=== PATIENT | female | born 1990 | race American Indian/Alaskan Native ===

== ENCOUNTER 2018-10-22 08:13 | Inpatient (IN) | payer MEDICAID ==
[2018-10-22] MEDS ORDERED: LACTATED RINGERS 1,000 ML ONE (08:46)
[2018-10-22] MEDS ORDERED: XYLOCAINE 2% INFILTRATI ONE ×2 (10:22→11:16)
[2018-10-22] MEDS ORDERED: BRETHINE SUB-Q PRN (10:22)
[2018-10-22] MEDS ORDERED: ZOFRAN IV PRN (10:22)
[2018-10-22] MEDS ORDERED: BRETHINE IVP PRN (10:22)
[2018-10-22] MEDS ORDERED: PITOCin/NS 30 UNIT/500ML 30 UNITS/500 ML BAG IV SCH ×2 (10:29→12:00)
[2018-10-22] MEDS ORDERED: LACTATED RINGERS 1,000 ML IV SCH ×2 (11:00→12:00)
[2018-10-22] MEDS ORDERED: PITOCin/NS 20 UNIT/1000ML DRIP 20 UNITS/1,000 ML BAG IV SCH (11:00)
[2018-10-22 11:11] LABS: Hematocrit 34.9 % (30.3-42.9); Hemoglobin 11.7 gm/dl (10.1-14.3); Mean Corpuscular HGB Conc 33 % (30-34); Mean Corpuscular Volume 95 fl (79-97); Platelet Count 248 K/mm3 (140-440); Red Blood Count 3.66 M/mm3 (3.65-5.03); Red Cell Distribution Width 15.9 % (13.2-15.2)
[2018-10-22] MEDS: SUBLIMAZE IV PRN ×2 (11:51→14:23)
--- NOTE | 2018-10-22 11:52 | History and Physical Report ---
History of Present Illness Date of examination: 10/22/18 (presents for IOL) Date of admission: 10/22/18 08:13 History of present illness: EDC Confirmation: 10/13/2018 Gestational Age: 26 5/7 weeks Past History : 5 Term Births: 2 Premature Births: 1 Living Children: 3 Para: 3 Mult. Births: 0 Prev : 0 Prev. attempt? 0 Aborta: 1 Elect. Ab: 0 Spont. Ab: 1 Ectopics: 0 # 1 Delivery date: 2012 Weeks Gestation: 40 Delivery type: Anesthesia type: epidural Delivery location: [facility] weight: 6lb Comments: pt reports all babies were 6lbs # 2 Delivery date: 2015 Weeks Gestation: 6 Delivery type: SAB Delivery location: [facility] Comments: pyleostenosis # 3 Delivery date: 2017 Weeks Gestation: 40 Delivery type: Anesthesia type: epidural Delivery location: [facility] weight: 6lb # 4 Delivery date: 2018 Weeks Gestation: 34 labor: yes Delivery type: Anesthesia type: epidural Delivery location: [facility] weight: 6lb Past Medical History: Reviewed history and no changes required: Negative Past Medical History Past Surgical History: Reviewed history and no changes required: negative Past Medical History Anesthesia Complications: negative Anemia: negative Autoimmune Disorder: negative Bleeding Disorder: negative Blood Transfusions: negative Breast Disease: negative Diabetes: negative Heart Disease: negative Hypertension: negative Hepatitis/Liver Disease: negative Kidney Disease/UTI: negative Neurologic/Epilepsy/Migraines: negative Phlebitis/Varicosities: negative Psychiatric: negative Pulmonary Disease/Asthma: negative Thyroid Disease: negative Hospitalizations: negative Surgery (Non-presser hand): negative Abnormal PAP: negative LADONNA Exposure: negative Infertility: negative Uterine Anomaly: negative Uterine Surgery (not C/S): negative Other Gynecologic Problems: negative Social Hx: Patient is single Smoking History: Patient has never smoked. Infection History Hx of STD: none Personal hx. of genital herpes: no Partner hx. of genital herpes: no Varicella/Chicken Pox Status: Previous Disease Genetic History Congenital Heart Defect: Mom: no Dad: no Monse Disease: Mom: no Dad: no Thalassemia Mom: no Dad: no Neural Tube Defect Mom: no Dad: no Down's Syndrome Mom: no Dad: no Juan-Sachs Mom: no Dad: no Sickle Cell Disease/Trait Mom: no Dad: no Hemophilia Mom: no Dad: no Muscular Dystrophy Mom: no Dad: no Cystic Fibrosis Mom: no Dad: no Atkinson Chorea Mom: no Dad: no Mental Retardation Mom: no Dad: no Fragile X Mom: no Dad: no Other Genetic/Chromosomal Disorder Mom: no Dad: no Child w/other defect Mom: no Dad: no Enviromental Exposures Xray Exposure: no Medication, drug, or alcohol use since LMP: no Chemical/Other Exposure: no Exposure to Cat Liter: no Hx of Parvovirus (Fifth Disease): no Occupational Exposure to Children: none Active Medications (reviewed today): None Current Allergies (reviewed today): IBUPROFEN (IBUPROFEN TABS) (Critical) Past History - Obstetrical History Expected Date of Delivery: 10/13/18 Actual Gestation: 41 Week(s) 2 Day(s) : 5 Para: 2 Hx # Term Pregnancies: 2 Number of Pregnancies: 0 Spontaneous Abortions: 0 Induced : 0 Number of Living Children: 2 Medications and Allergies Allergies Allergy/AdvReac Type Severity Reaction Status Date / Time ibuprofen Allergy Swelling Verified 10/22/18 10:21 Active Meds: Active Medications Ephedrine Sulfate (Ephedrine Sulfate) 10 mg IV Q2M PRN PRN Reason: Hypotension Fentanyl (Sublimaze) 100 mcg IV Q2H PRN PRN Reason: Labor Pain Lactated Ringer's (Lactated Ringers) 1,000 mls @ 125 mls/hr IV DIRECT TAM Oxytocin/Sodium Chloride (Pitocin/Ns 20 Unit/1000ml Drip) 20 units in 1,000 mls @ 125 mls/hr IV DIRECT TAM Lactated Ringer's (Lactated Ringers) 1,000 mls @ 125 mls/hr IV DIRECT ATM Oxytocin/Sodium Chloride (Pitocin/Ns 30 Unit/500ml) 30 units in 500 mls @ 4 mls/hr IV Q30MIN TAM; Protocol Mineral Oil (Mineral Oil) 30 ml PO QHS PRN PRN Reason: Constipation Ondansetron HCl (Zofran) 4 mg IV Q8H PRN PRN Reason: Nausea And Vomiting Terbutaline Sulfate (Brethine) 0.25 mg SUB-Q ONCE PRN PRN Reason: Hyperstimulation/Hypertonicity Terbutaline Sulfate (Brethine) 0.25 mg IVP ONCE PRN PRN Reason: Hyperstimulation/Hypertonicity - Vital Signs Vital signs: Vital Signs Pulse BP 86 111/73 10/22/18 08:37 10/22/18 08:37 Temp Pulse Resp BP Pulse Ox 98.2 F 86 16 111/73 10/22/18 09:00 10/22/18 08:37 10/22/18 09:00 10/22/18 08:37 - Physical Exam Breasts: Positive: normal Cardiovascular: Regular rate, Normal S1, Normal S2 Lungs: Positive: Normal air movement Abdomen: Positive: normal appearance, soft, normal bowel sounds. Negative: distention, tenderness Genitourinary (Female): Positive: normal external genitalia Vulva: both: normal Vagina: Positive: normal moisture. Negative: discharge Cervix: Negative: lesion, discharge Uterus: Positive: normal size, normal contour Adnexa: both: normal Anus/Rectum: Positive: normal perianal skin, heme negative. Negative: rectal mass, hemorrhoids Extremities: Positive: normal Deep Tendon Reflex Grade: Normal +2 - Obstetrical FHR: category 1 Uterine Contraction Monitor Mode: External Cervical Dilatation: 6 (per RN on admission) Cervical Effacement Percentage: 70 station: -2 Uterine Contraction Pattern: Irregular Uterine Tone Measurement Phase: Resting Uterine Contraction Intensity: Mild Results Result Diagrams: 10/22/18 09:00 Abnormal lab results 10/22/18 Range/Units 09:00 RDW 15.9 H (13.2-15.2) % All other labs normal. GBS Negative HBsAg Screen Negative Negative *1 RPR Non Reactive Non Reactive *2 Rubella Antibodies, IgG 13.50 index Immune >0.99 *3 Non-immune <0.90 Equivocal 0.90 - 0.99 Immune >0.99 ABO Grouping O *4 Rh Factor Positive *5 Please note: Prior records for this patient's ABO / Rh type are not available for additional verification. Antibody Screen Negative Negative *6 WBC 7.6 x10E3/uL 3.4-10.8 *7 RBC [L] 3.59 x10E6/uL 3.77-5.28 *8 Hemoglobin [L] 10.5 g/dL 11.1-15.9 *9 Hematocrit [L] 32.1 % 34.0-46.6 *10 MCV 89 fL 79-97 *11 MCH 29.2 pg 26.6-33.0 *12 MCHC 32.7 g/dL 31.5-35.7 *13 RDW [H] 21.6 % 12.3-15.4 *14 Platelets 224 x10E3/uL 150-379 *15 Neutrophils 73 % Not Estab. *16 Lymphs 20 % Not Estab. *17 Monocytes 6 % Not Estab. *18 Eos 1 % Not Estab. *19 Basos 0 % Not Estab. *20 ! Immature Cells <No Reported Value> *21 Neutrophils (Absolute) 5.5 x10E3/uL 1.4-7.0 *22 Lymphs (Absolute) 1.5 x10E3/uL 0.7-3.1 *23 Monocytes(Absolute) 0.5 x10E3/uL 0.1-0.9 *24 Eos (Absolute) 0.1 x10E3/uL 0.0-0.4 *25 Baso (Absolute) 0.0 x10E3/uL 0.0-0.2 *26 ! Immature Granulocytes 0 % Not Estab. *27 ! Immature Grans (Abs) 0.0 x10E3/uL 0.0-0.1 *28 ! NRBC <No Reported Value> *29 Hematology Comments: <No Reported Value> *30 Tests: (2) Ct, Ng, Trich vag by YUE ([id number]) ! Chlamydia by YUE Negative Negative *31 ! Gonococcus by YUE Negative Negative *32 ! Trich vag by YUE Negative Negative *33 Tests: (3) Panel [id number] ([id number]) HIV Screen 4th Generation wRfx Non Reactive Non Reactive *34 Tests: (4) Gest. Diabetes 1-Hr Screen (521088) ! Gestational Diabetes Screen 110 mg/dL 65-139 *35 According to ADA, a glucose threshold of >139 mg/dL after 50-gram load identifies approximately 80% of women with gestational diabetes mellitus, while the sensitivity is further increased to approximately 90% by a threshold of >129 mg/dL. Tests: (5) HCV Ab w/Rflx to Verification ([id number]) ! HCV Ab <0.1 s/co ratio 0.0-0.9 *36 Tests: (6) Comment: ([id number]) ! Comment: SPRCS *37 Non reactive HCV antibody screen is consistent with no HCV infection, unless recent infection is suspected or other evidence exists to indicate HCV infection. Tests: (7) Urine Culture, Routine ([id number]) Urine Culture, Routine Final report *38 Tests: (8) Result ([id number]) ! Result 1 No growth *39 Assessment and Plan 28yo @ 41 weeks for IOL GBS negative Orders in EMR
[2018-10-22] MEDS ORDERED: METHERGINE IM ONE ×2 (15:11→16:03)
[2018-10-22] MEDS ORDERED: CYTOTEC PR ONE (15:20)
[2018-10-22] MEDS ORDERED: CYTOTEC ONE (15:21)
[2018-10-22] MEDS ORDERED: PHENERGAN PO PRN (16:05)
[2018-10-22] MEDS ORDERED: DULCOLAX PR PRN (16:05)
[2018-10-22] MEDS ORDERED: MILK OF MAGNESIA PO PRN (16:05)
[2018-10-22] MEDS ORDERED: TYLENOL PO PRN (16:05)
[2018-10-22] MEDS ORDERED: BENADRYL PO PRN (16:05)
[2018-10-22] MEDS ORDERED: TUCKS PAD TP PRN (16:05)
[2018-10-22] MEDS ORDERED: LANSINOH TP PRN (16:05)
--- NOTE | 2018-10-22 16:19 | Procedure Note ---
OB Delivery Note - Delivery Date of Delivery: 10/22/18 Preprint Analyst: SRAVANTHI SILVA Estimated blood loss: 500cc - Vaginal Delivery presentation: vertex Delivery position: OA Intrapartum events: other(please specify) (PP bleeding due to cervical laceration) Delivery induction: oxytocin Delivery augmentation: rupture of membranes Delivery monitor: external uterine, internal FHT Route of delivery: Delivery placenta: spontaneous Delivery cord: 3 umbilical vessels Episiotomy: none Delivery laceration: other (cervical lac repaired with 2-0 vicryl) Delivery repair: vicryl Anesthesia: local Delivery comments: live born female over intact perineum NICU called to delivery Baby passed to waiting NICU team. Cord blood obtained Placenta and membrane delivered complete and intact, 3 vessel cord. Pit IVFs Blood clots noted methergine IM given Cytotec 800mcg AZ 8/8, EBL 500, wgt 9-6. Cervical tear noted. Lidocaine infused Tear repaired with 2-0 vicryl in usual fashion. Vaginal packing placed. Will remove in 4 hours. Mom and baby remain LDR stable. Methergine po ordered PP to start @ 2200. - A at 1 minute: 8 at 5 minutes: 8 Gender: Female (wgt 9-6)
[2018-10-22] MEDS ORDERED: SODIUM CHLORIDE FLUSH SYRINGE 10 ML IV NR (17:00)
[2018-10-22] MEDS ORDERED: IBUPROFEN PO SCH (17:00)
[2018-10-22] MEDS ORDERED: TORADOL IV ONE (18:41)
[2018-10-22] MEDS: NORCO 5/325 PO PRN (19:43)
[2018-10-22] MEDS ORDERED: MINERAL OIL PO PRN (22:00)
[2018-10-22] MEDS: METHERGINE PO SCH (22:12)
[2018-10-22] MEDS: COLACE PO SCH (22:12)
[2018-10-23] MEDS: NORCO 5/325 PO PRN ×3 (01:45→16:43)
[2018-10-23 05:07] LABS: Hematocrit 29.2 % (30.3-42.9); Hemoglobin 10.1 gm/dl (10.1-14.3)
[2018-10-23] MEDS ORDERED: BOOSTRIX IM ONE (06:00)
[2018-10-23] MEDS ORDERED: M-M-R II VACCINE SUB-Q ONE (06:00)
--- NOTE | 2018-10-23 07:43 | Discharge Summary ---
Providers - Providers Date of Admission: 10/22/18 08:13 Date of discharge: 10/23/18 (pt desires d/c home) Attending physician: LUKE GUILLEN Primary care physician: LUKE GUILLEN Hospitalization Reason for admission: labor Condition: Good Pertinent studies: post del H&H 10.29.2 Procedures: w/ cervical laceration repair Hospital course: complicated by cervical laceration, course uncomplicated Disposition: DC-01 TO HOME OR SELFCARE - Discharge Diagnoses (1) Cervical tear resulting from childbirth Status: Acute (2) Normal spontaneous vaginal delivery Status: Acute Core Measure Documentation - Palliative Care Palliative Care/ Comfort Measures: Not Applicable - Core Measures Any of the following diagnoses?: none Exam - Constitutional Vitals: Temp Pulse Resp BP Pulse Ox 98.5 F 74 20 107/57 96 10/23/18 04:49 10/23/18 04:49 10/23/18 04:49 10/23/18 04:49 10/23/18 04:49 General appearance: Present: no acute distress, well-nourished - EENT Eyes: Present: PERRL ENT: hearing intact, clear oral mucosa - Neck Neck: Present: supple, normal ROM - Respiratory Respiratory effort: normal Respiratory: bilateral: CTA - Cardiovascular Heart Sounds: Present: S1 & S2. Absent: rub, click - Extremities Extremities: pulses symmetrical, No edema Peripheral Pulses: within normal limits - Abdominal General gastrointestinal: Present: soft, non-tender, non-distended, normal bowel sounds Female genitourinary: Present: normal - Integumentary Integumentary: Present: clear, warm, dry - Musculoskeletal Musculoskeletal: gait normal, strength equal bilaterally - Psychiatric Psychiatric: appropriate mood/affect, intact judgment & insight - Neurologic Neurologic: CNII-XII intact, moves all extremities - Additional findings Additional findings: Lochia scant, fundus firm, VSSAF, bottle feeding Plan Activity: no restrictions Diet: regular Follow up with: LUKE GUILLEN MD [Primary Care Provider] - 11/20/18 (Congratulations! Please call [phone] to schedule your appointment in 4 weeks. Call for any questions or concerns. ) Prescriptions: Ibuprofen [Motrin 800 MG tab] 800 mg PO Q8HR PRN #30 tablet PRN Reason: Pain
[2018-10-23] MEDS: METHERGINE PO SCH (08:10)
[2018-10-23] MEDS: COLACE PO SCH (09:10)
[2018-10-23] MEDS ORDERED: PRENATAL VITAMIN PO SCH (10:00)
[2018-10-23 16:32] VITALS: BP 114/71
== END 2018-10-23 17:15 | disposition home or self-care (01) | DRG 774 ==
LOC: LD 08:13 → OB 20:12
PROVIDERS: ADMIT Obstetrics & Gynecology; ATTEND Obstetrics & Gynecology
PROC: 10E0XZZ Delivery of Products of Conception, External Approach (ICD-10-PCS; principal; 2018-10-22)
PROC: 3E033VJ Introduction of Other Hormone into Peripheral Vein, Percutaneous Approach (ICD-10-PCS; 2018-10-22)
PROC: 0UQC0ZZ Repair Cervix, Open Approach (ICD-10-PCS; 2018-10-22)
PROC: 3E0234Z Introduction of Serum, Toxoid and Vaccine into Muscle, Percutaneous Approach (ICD-10-PCS; 2018-10-23)
DX: O71.3 Obstetric laceration of cervix (principal); O72.1 Other immediate postpartum hemorrhage; Z37.0 Single live birth; Z88.6 Allergy status to analgesic agent; Z3A.41 41 weeks gestation of pregnancy; Z23 Encounter for immunization
CPT/HCPCS: 36415; 59025; 85014; 85018; 85027; 86592; 86850; 86900; 86901; 96360; 96361; 96365; 96372; 96374; G0378; J2210; J2590; J3010; J7120

== ENCOUNTER 2019-05-08 11:38 | Emergency (ER) | payer MEDICAID ==
[2019-05-08 11:49] VITALS: BP 94/56
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
[2019-05-08] MEDS ORDERED: TYLENOL PO ONE (13:08)
[2019-05-08] MEDS ORDERED: TYLENOL ONE (13:11)
[2019-05-08 13:38] LABS: Basophils % (Auto) 0.3 % (0.0-1.8); Eosinophils % (Auto) 0.2 % (0.0-4.3); Hematocrit 44.3 % (30.3-42.9); Hemoglobin 14.5 gm/dl (10.1-14.3); Lymphocytes # (Auto) 1.4 K/mm3 (1.2-5.4); Lymphocytes % (Auto) 20.5 % (13.4-35.0); Mean Corpuscular HGB Conc 33 % (30-34); Mean Corpuscular Volume 85 fl (79-97); Monocytes # (Auto) 0.7 K/mm3 (0.0-0.8); Monocytes % (Auto) 9.7 % (0.0-7.3); Platelet Count 324 K/mm3 (140-440); Red Blood Count 5.23 M/mm3 (3.65-5.03)
[2019-05-08 14:00] LABS: Bacteria,Urine 2+ /HPF (Negative); Bilirubin,Urine NEG (Negative); Blood,Urine SM (Negative); Color,Urine Yellow (Yellow); Protein,Urine <15 mg/dL mg/dL (Negative); Urobilinogen,Urine < 2.0 mg/dL (<2.0)
[2019-05-08 14:08] LABS: Alanine Aminotransferase 62 units/L (7-56); Albumin 4.5 g/dL (3.9-5); BUN/Creatinine Ratio 8; Blood Urea Nitrogen 5 mg/dL (7-17); Hemolysis Index 3
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
== END 2019-05-08 14:34 | disposition home or self-care (01) ==
LOC: ED 11:38
DX: S00.12XA Contusion of left eyelid and periocular area, initial encounter (principal); S00.11XA Contusion of right eyelid and periocular area, initial encounter; S00.531A Contusion of lip, initial encounter; S70.12XA Contusion of left thigh, initial encounter; S70.11XA Contusion of right thigh, initial encounter; F17.200 Nicotine dependence, unspecified, uncomplicated; Z79.899 Other long term (current) drug therapy; Z88.8 Allergy status to other drugs, medicaments and biological substances; Y04.0XXA Assault by unarmed brawl or fight, initial encounter; Y93.89 Activity, other specified; Y92.89 Other specified places as the place of occurrence of the external cause; Y99.8 Other external cause status
CPT/HCPCS: 36415; 70450; 70486; 72125; 80053; 81001; 84703; 85025